=== PATIENT | female | born 1990 | race Caucasian/White ===

== ENCOUNTER 2020-02-07 17:44 | Emergency (ER) | payer MEDICAID ==
[~2020-02-07] VITALS: Ht 160 cm; Wt 104.3 kg
[2020-02-07 18:04] VITALS: Ht 160 cm; Wt 104.3 kg
[2020-02-07 19:19] LABS: BASOPHIL % 0.4 % (0-2); PLATELET COUNT 423 x10^3mcL (130-400); RED CELL DISTRIBUTION WIDTH 13.6 % (11.5-14.5)
[2020-02-07 21:47] VITALS: BP 143/96
== END 2020-02-07 19:19 | disposition home or self-care (01) ==
LOC: ED 17:44
PROVIDERS: Specialist
DX: O20.0 Threatened abortion (principal)

== ENCOUNTER 2020-02-16 13:36 | Emergency (ER) | payer MEDICAID ==
[~2020-02-16] VITALS: Ht 160 cm; Wt 104.3 kg
[2020-02-16 14:01] VITALS: BP 121/83; Ht 160 cm; Wt 104.3 kg
[2020-02-16 18:14] LABS: BASOPHIL % 1.3 % (0.2-1.3); RED CELL DISTRIBUTION WIDTH 13.5 % (12.3-17.7)
[2020-02-16 18:21] LABS: PLATELET COUNT 527 x10^3mcL (179-408)
== END 2020-02-16 20:02 | disposition home or self-care (01) ==
LOC: ED 13:36
DX: O20.0 Threatened abortion (principal); O99.281 Endocrine, nutritional and metabolic diseases complicating pregnancy, first trimester